=== PATIENT | male | born 1945 | race Caucasian/White ===

== ENCOUNTER 2017-08-23 08:12 | Outpatient (RCR) | payer MEDICARE, OTHER ==
[~2017-08-23 08:12] MED LIST: AUGMENTIN 875 M1 TAB PO; DEPO-TESTOS100 MG/ML IM; ESCITALOPRAM; MVI; PERCOCET 5/321 UDTAB PO; ZOCOR
== END 2017-08-29 11:39 | disposition home or self-care (01) ==
LOC: WSPT 08:12
DX: H81.8X2 Other disorders of vestibular function, left ear (principal)
CPT/HCPCS: G8981-GP; G8982-GP